=== PATIENT | female | born 1985 | race Caucasian/White ===

== ENCOUNTER → 2017-01-21 | Outpatient (CLI) | payer OTHER ==
--- NOTE | 2017-01-22 07:04 | US ---
EXAMINATION TYPE: US OB anatomy transabd third trimester DATE OF EXAM: 01/21/2017 4:10 PM COMPARISON: US in PACS January 23, 2016 HISTORY: LGA TECHNIQUE: Transabdominal (TA) EXAM MEASUREMENTS: GESTATIONAL AGE / DATING Physician Established: (37 weeks/6 days) EDC: 02/05/2017 Dates by LMP: (37 weeks/6 days) EDC: 02/05/2017 Dates by First Scan: (38 weeks/1 days) EDC: 02/02/2017 Dates by Current Scan for: (38 weeks/4 days) EDC: 01/31/2017 SURVEY IUP: Single PLACENTA: Fundal PREVIA: No previa AMARI: 11.6 cm Normal CERVICAL LENGTH (transabdominal: norm > 3.0cm): 3.1 cm BIOMETRY PRESENTATION: Vertex BPD: 9.6 cm 39 weeks / 2 days HC: 34.2 cm 39 weeks / 3 days AC: 35.2 cm 39 weeks / 1 days FL: 7.1 cm 36 weeks / 3 days ESTIMATED WEIGHT IN GRAMS: 3530 grams ESTIMATED WEIGHT IN LBS/OZS: 7 lbs. 13 oz. WEIGHT PERCENTAGE BASED ON ESTABLISHED DATE: 74 % HC/AC: 0.97 Normal FL/AC: 20 Normal HEART RATE: 163 bpm RHYTHM: Normal ANATOMY SEEN (within normal limits): * Lateral Vent (< 1 cm) 0.7 cm Choroid Plexus (bilateral) Midline Falx Cavus Septi Pellucidi Four Chamber Heart Outflow tracts: LVOT/ Stomach Situs Diaphragm Kidneys (bilateral) Bladder Three Vessel Cord Longitudinal Spine Transverse Spine ANATOMY NOT SEEN: Cisterna Magna (< 1.1 cm) cm * Nuchal Fold (< 0.6 cm) cm * Cerebellum (varies with age) cm RVOT Nose / Lips Cord Insert Arms (bilateral) Legs (bilateral) TECHNOLOGIST IMPRESSION: Single, viable IUP/ Growth parameters wnl/ Male genitalia visible with bila teral hydroceles visualized Single live intrauterine gestation is redemonstrated. Normal cephalad presentation to fetus is curren tly identified. Amniotic fluid index is within normal limits. There is no evidence for placenta previ a. biometry measurements are within normal limits. Detailed anatomical survey shows no suspicio us abnormality during real-time scanning but due to advanced gestational age and positioning, several structures noted above are suboptimally evaluated. There is moderate to large bilateral scrotal flui d collection or hydroceles identified. IMPRESSION: As above, scrotal fluid collection or hydroceles noted
== END | disposition home or self-care (01) ==
LOC: RADUSWWP 15:44
PROVIDERS: ATTEND Obstetrics & Gynecology
DX: O36.63X0 Maternal care for excessive fetal growth, third trimester, not applicable or unspecified (principal); Z3A.39 39 weeks gestation of pregnancy
CPT/HCPCS: 76811

== ENCOUNTER 2017-01-29 16:15 | Inpatient (IN) | payer OTHER ==
[2017-01-29] MEDS ORDERED: ceFAZolin 2 GM in SODIUM CHLORIDE 0.9% 100 ML IVPB ONE (16:56)
[2017-01-29] MEDS ORDERED: CITRIC ACID-SODIUM CITRATE 15 ML CUP PO ONE (16:56)
--- NOTE | 2017-01-29 17:01 | P.HPOB ---
History of Present Illness H&P Date: 01/29/17 Chief Complaint: Interim at term: Gestational hypertension versus preeclamptic Morena is a 31-year-old at 39 weeks gestation arrives to the office today for her normal obstetrical visit. Her blood pressures in the office was 152/94 and she sexually has had several other elevated blood pressures all in the low elevated range in the 150s over 80s to 90s. She is therefore planned for delivery due to above. Her cervix however is closed thick and long. In discussion with the patient we gave the option of Cervidil ripening with an attempt at induction tomorrow versus primary section tonight. Due to her concerns over a length of time for delivery and risk with blood pressure elevation she is opted for a section. This was discussed with both she and her and will be planned out for this evening. Risks/benefits/ alternatives were reviewed with the patient in detail and all questions were answered for her prior to proceeding to the operating room these did include but were not limited to damage to bladder, bowel, ureters, bleeding, infection. Is also noted the baby has either varicocele or some type of fluid collection within the testes bilaterally. This will need to be discussed with the mutual fund manager so taken thoroughly evaluate this tomorrow. Physical exam vital signs ar noted to have elevation in blood pressure. She was however afebrile. Heart regular, lungs clear, extremities without pain, there is 1+ pitting edema bilaterally, she is noted to have 2+ deep tendon reflexes. . Gravid uterus is noted. heart tones are in the 150s and are reactive. Assessment intrauterine at term. Gestational hypertension versus preeclampsia. Labs have been ordered and are pending. Should any lab abnormalities be present will plan to initiate make sulfate as seizure prophylaxis. Medications and Allergies Allergies Allergy/AdvReac Type Severity Reaction Status Date / Time No Known Allergies Allergy Verified 01/29/17 16:50 Exam Osteopathic Statement: *. No significant issues noted on an osteopathic structural exam other than those noted in the History and Physical/Consult. - Vital Signs Vital signs: Intake and Output 01/29/17 01/29/17 01/29/17 06:59 14:59 22:59 Other: Weight 117.027 kg Patient Weight 01/30/17 06:59 Weight 117.027 kg - OBG Physical Exam Breast: both: normal (no masses) Abdomen: bowel sounds normal, no diffuse tenderness, no bruit present, no guarding noted, no hepatomegaly, no splenomegaly, no mass Vulva: both: normal Vagina: normal moisture, no discharge Cervix: no lesion, no discharge Uterus: normal size, normal contour Adnexa: both: normal Anus/Rectum: normal perianal skin, no rectal mass, no hemorrhoids, heme negative
[2017-01-29] MEDS: LACTATED RINGERS 1,000 ML IV SCH (17:11)
[2017-01-29 17:14] LABS: Appearance,Urine Cloudy (Clear); Bacteria,Urine Few /hpf; Bilirubin,Urine Negative (Negative); Glucose,Urine (UA) Negative (Negative); Ketones,Urine Negative (Negative); Leukocyte Esterase,Urine Negative (Negative); Mucus,Urine Rare /hpf; Nitrite,Urine Negative (Negative); PH, Urine 6.5 (5.0-8.0); Particle Count 8814; Protein,Urine 1+ (Negative); RBC,Urine 1 /hpf (0-5); Specific Gravity,Urine 1.021 (1.001-1.035); Squamous Epithelial Cell,Urine 5 /hpf (0-4); UA Billing (MACRO vs. MICRO) MICRO; Urobilinogen,Urine <2.0 mg/dL (<2.0); WBC,Urine 5 /hpf (0-5)
[2017-01-29 17:25] LABS: ALT 24 U/L (9-52); AST 14 U/L (14-36); Blood Urea Nitrogen 11 mg/dL (7-17); LDH 351 U/L (313-618); Non-African American GFR(MDRD) >60 (>60 ml/min/1.73 sqM); Uric Acid 6.3 mg/dL (3.7-7.4)
[2017-01-29 17:53] VITALS: BMI 40.4
[2017-01-29 19:21] LABS: Basophils % (A) 0 %; CH 29.8; CHCM 33.5; Eosinophils # (A) 0.1 k/uL (0-0.7); Eosinophils % (A) 1 %; HCT 36.1 % (34.0-46.0); HDW 2.73; Luc # (Auto) 0.31; Luc % (Auto) 3; Lymphocytes # (A) 1.5 k/uL (1.0-4.8); Lymphocytes % (A) 15 %; MCH 29.7 pg (25.0-35.0); MCHC 33.1 g/dL (31.0-37.0); MCV 89.6 fL (80.0-100.0); Mean Platelet Volume 7.9; Monocytes # (A) 0.4 k/uL (0-1.0); Monocytes % (A) 4 %; Neutrophils # (A) 7.5 k/uL (1.3-7.7); Neutrophils % (A) 76 %; RBC 4.03 m/uL (3.80-5.40); WBC 9.9 k/uL (3.8-10.6)
[2017-01-29] MEDS ORDERED: KETOROLAC 30 MG/ML 1 ML VIAL ONE (20:24)
[2017-01-29] MEDS ORDERED: OXYTOCIN 10 UNIT/ML 1 ML VIAL IM ONE (20:24)
[2017-01-29] MEDS ORDERED: LACTATED RINGERS 1,000 ML BAG IV ONE (20:24)
[2017-01-29] MEDS ORDERED: ePHEDrine 50 MG/ML 1 ML AMP ONE (20:24)
[2017-01-29] MEDS ORDERED: NALBUPHINE 10 MG/ML AMPUL ONE (20:24)
[2017-01-29] MEDS ORDERED: ONDANSETRON 4 MG/2 ML VIAL ONE (20:24)
[2017-01-29] MEDS ORDERED: MORPHINE SULFATE (PF) 0.3 MG/0.3 ML SYR ONE (20:24)
[2017-01-29] MEDS ORDERED: NALOXONE 0.4 MG/ML 1 ML VIAL IV PRN (20:56)
[2017-01-29] MEDS ORDERED: MORPHINE SULFATE 4 MG/ML SYRINGE IVP PRN (20:56)
[2017-01-29] MEDS ORDERED: ONDANSETRON 4 MG/2 ML VIAL IVP PRN (20:56)
[2017-01-29] MEDS ORDERED: NALBUPHINE 10 MG/ML AMPUL IV PRN (20:56)
[2017-01-29] MEDS ORDERED: diphenhydrAMINE 50 MG/ML 1 ML VIAL IVP PRN ×2 (20:56→21:00)
[2017-01-29] MEDS ORDERED: Acetaminophen-Codeine 300-30mg TAB PO PRN ×2 (21:00)
[2017-01-29] MEDS ORDERED: ZOLPIDEM 5 MG TAB PO PRN (21:00)
[2017-01-29] MEDS ORDERED: diphenhydrAMINE 50 MG CAP PO PRN (21:00)
[2017-01-29] MEDS ORDERED: ACETAMINOPHEN TAB 325 MG TAB PO PRN (21:00)
[2017-01-29] MEDS ORDERED: SIMETHICONE 80 MG CHEWABLE PO PRN (21:00)
[2017-01-29] MEDS ORDERED: LACTATED RINGERS 1,000 ML IV SCH (21:00)
[2017-01-29] MEDS ORDERED: diphenhydrAMINE 25 MG CAP PO PRN (21:00)
[2017-01-29] MEDS ORDERED: METOCLOPRAMIDE 5 MG/ML 2 ML VIAL IVP PRN (21:00)
--- NOTE | 2017-01-29 21:06 | P.OP ---
Date of Procedure: 01/29/17 Preoperative Diagnosis: IUP term: gest hypertension: suspect macrosomia Postoperative Diagnosis: same Procedure(s) Performed: Primary low-transverse section from Pfannenstiel Anesthesia: spinal Surgeon: Marky Morgan [place] [employer] Director #1: Анна Young Estimated Blood Loss (ml): 400 IV fluids (ml): 800 Urine output (ml): 50 Pathology: other (Placenta) Condition: stable Disposition: floor Operative Findings: Male scores of 8 and 9 at one and 5 minutes respectively weight was 8 lbs. 11 oz. Description of Procedure: Patient was taken to the operating suite where a spinal anesthetic was found to be adequate. She was prepped and draped in the normal sterile fashion placed in the dorsal supine position with leftward tilt. Initially a Pfannenstiel skin incision was made. This incision was then carried through to underlying layer of the fascia was second knife. Fascia was then nicked in midline and this opening was extended laterally with Ashraf scissors. Superior and inferior aspect of this incision were then grasped tented up and bluntly and sharply dissected off the rectus muscles. Rectus muscles were then divided the midline and blunt dissection through the peritoneum was made. This opening was then extended superiorly and inferiorly with good visualization of both bowel bladder. Bladder blade was then placed and the vesicouterine peritoneum was identified and grasped pickups. This tissue was then entered sharply with Metzenbaum scissors and the opening was extended across face of the uterus. Blunt dissection of the bladder out of the operative field was then performed. Knife was then used to incise the uterus. This opening was then created fully with hemostat clear fluid is noted and excision incision is extended bluntly. Head was then H medically delivered a cord was noted around the body was delivered through the cord. Interim posterior shoulders were delivered with gentle downward upper traction and by grasping the axilla to assist in delivery. Once baby was fully delivered mouth nares were bulb suctioned 2 times and umbilical cord was clamped cut usual fashion with nursery personnel being present at that time. Uterus then had the placenta delivered intact and Pitocin was added to the IV. Uterus was then exteriorized cleared of clots and debris and closed in 2 layers with 0 Vicryl suture. Once excellent hemostasis was obtained obtained 3-0 Vicryl was used to reapproximate the bladder flap. Blood and debris was then suctioned from the posterior cul-de-sac and uterus was reinserted into the abdomen. Peritoneal was then reapproximated with 0 Vicryl suture. Fascial layer was closed with 0 Vicryl suture. One layer of 3- 0 Vicryl was placed in deep subcuticular tissues to reapproximate the skin and close space and the skin was then closed with 3-0 Vicryl on a Alfonzo needle. Sponge, lap, needle counts were all correct 2. Patient was then taken to the recovery room in stable and satisfactory condition.
[2017-01-29] MEDS: OXYTOCIN 30 UNITS/500 ML NS 30 UNIT in SALINE 1 500ML.BAG IV SCH (21:33)
[2017-01-30] MEDS: LACTATED RINGERS 1,000 ML IV SCH ×3 (00:55→20:27)
[2017-01-30] MEDS: KETOROLAC 30 MG/ML 1 ML VIAL IVP PRN ×4 (03:24→21:56)
[2017-01-30] MEDS: ceFAZolin 2 GM in SODIUM CHLORIDE 0.9% 100 ML IVPB SCH ×2 (03:24→10:26)
[2017-01-30] MEDS: OXYTOCIN 30 UNITS/500 ML NS 30 UNIT in SALINE 1 500ML.BAG IV SCH (06:33)
--- NOTE | 2017-01-30 08:02 | P.PNOBGPC ---
Subjective - Subjective Principal diagnosis: Postop day 1 Interval history: Overall Morena is doing very well. She is ambulating, voiding and she is tolerating a diet. She voices no complaints this time. Her vital signs are stable and she is afebrile. Blood pressure appears much better after delivery. Her heart is regular, lungs are clear, extremities without pain. Abdomen soft uterus is firm and the incision is currently intact. Assessment postop day 1. Plan continue current care. Patient reports: Reports appetite normal (Postoperative day 1), Reports voiding normally, Reports pain well controlled, Reports ambulating normally [place]: doing well Objective - Vital Signs Latest vital signs: Vital Signs Temp Pulse Resp BP Pulse Ox 01/30/17 05:00 87 16 129/80 98 01/30/17 04:00 85 15 122/79 98 01/30/17 03:00 68 15 132/80 96 01/30/17 01:00 82 15 127/62 96 01/29/17 23:08 93 16 115/74 95 01/29/17 22:38 86 16 130/74 95 01/29/17 22:08 100 16 124/60 94 L 01/29/17 21:53 96 16 128/62 96 01/29/17 21:38 95 18 133/62 95 01/29/17 21:23 93 17 121/58 95 01/29/17 21:08 98.1 F 104 H 18 118/66 01/29/17 20:56 94 L Intake and Output 01/29/17 01/30/17 01/30/17 22:59 06:59 14:59 Intake Total 475 800 Output Total 250 Balance 475 550 Intake: IV 475 250 Lactated Ringers 1,000 ml 375 250 @ 125 mls/hr IV .Q8H [facility] Rx#:[id number] ceFAZolin 2 gm In Sodium 100 Chloride 0.9% 100 ml @ 100 mls/hr IVPB ONCE ONE Rx#:[id number] Oral 550 Output: Urine 250 Uretheral (Benavides) 250 Other: Voiding Method Indwelling Catheter Indwelling Catheter Weight 117.027 kg - Exam Lungs: bilateral: normal Chest: Normal S1, Normal S2 Extremities: Present: normal Abdomen: Present: normal appearance, soft. Absent: distention, tenderness Incision: Present: normal, dry, intact Uterus: Present: normal, firm - Labs Labs: Abnormal Lab Results - Last 24 Hours (Table) 01/29/17 Range/Units 16:58 Urine Appearance Cloudy H (Clear) Urine Protein 1+ H (Negative) Ur Squamous Epith Cells 5 H (0-4) /hpf Urine Bacteria Few H (None) /hpf Urine Mucus Rare H (None) /hpf
[2017-01-30 08:05] LABS: Basophils % (A) 0 %; CH 29.4; CHCM 32.8; Eosinophils # (A) 0.1 k/uL (0-0.7); Eosinophils % (A) 1 %; HCT 34.4 % (34.0-46.0); HDW 2.66; HGB 11.2 gm/dL (11.4-16.0); Luc # (Auto) 0.32; Luc % (Auto) 3; Lymphocytes # (A) 1.4 k/uL (1.0-4.8); Lymphocytes % (A) 12 %; MCH 29.4 pg (25.0-35.0); MCHC 32.6 g/dL (31.0-37.0); Mean Platelet Volume 6.9; Monocytes # (A) 0.4 k/uL (0-1.0); Monocytes % (A) 3 %; Neutrophils # (A) 9.7 k/uL (1.3-7.7); Neutrophils % (A) 82 %; RBC 3.82 m/uL (3.80-5.40); WBC 11.9 k/uL (3.8-10.6); WBC (Perox) 12.93
[2017-01-30] MEDS: SENNOSIDES-DOCUSATE SODIUM 1 EACH TAB PO SCH ×2 (10:03→19:34)
--- NOTE | 2017-01-30 10:40 | P.PN ---
Progress Note - Text Date:01/30 Time:723 Patient is status post . Patient seen this morning with VAS score of 0. c/o mild pruritus, no c/o nausea/vomiting, comfortable and doing well.
[2017-01-30] MEDS ORDERED: ONDANSETRON 4 MG/2 ML VIAL IVP PRN (21:00)
[2017-01-31] MEDS: LACTATED RINGERS 1,000 ML IV SCH (04:58)
--- NOTE | 2017-01-31 07:22 | P.PNOBGPC ---
Subjective - Subjective Patient reports: Reports appetite normal, Reports voiding normally, Reports pain well controlled, Reports ambulating normally : doing well Objective - Vital Signs Latest vital signs: Vital Signs Temp Pulse Resp BP Pulse Ox 01/31/17 00:00 98.3 F 89 16 110/61 97 01/30/17 22:00 86 16 120/81 96 01/30/17 20:00 98.2 F 83 16 113/63 97 01/30/17 18:00 98.3 F 94 16 116/67 97 01/30/17 16:00 98.4 F 90 14 115/64 98 01/30/17 14:00 97.8 F 94 16 116/78 98 01/30/17 12:00 98 F 84 14 104/63 98 01/30/17 08:00 97.7 F 88 16 112/69 98 - Exam Lungs: bilateral: normal Chest: Normal S1, Normal S2 Extremities: Present: normal Abdomen: Present: normal appearance, soft. Absent: distention, tenderness Incision: Present: normal, dry, intact Uterus: Present: normal, firm - Labs Labs: Abnormal Lab Results - Last 24 Hours (Table) 01/30/17 Range/Units 07:34 WBC 11.9 H (3.8-10.6) k/uL Hgb 11.2 L (11.4-16.0) gm/dL Neutrophils # 9.7 H (1.3-7.7) k/uL Assessment and Plan (1) delivery delivered Narrative/Plan: This is postoperative day #2. Patient is resting without new complaints. Vital signs are stable and she is afebrile. Blood pressures look good. Uterus is firm nontender and her incision is intact and dry. Patient is tolerating regular diet, urinating, ambulating without difficulty. My impression this is a normal postoperative course. Her hypertension appears to have resolved. Plan is to continue routine postoperative care. Patient desires to go home tomorrow. Current Visit: Yes Status: Acute Code(s): O82 - ENCOUNTER FOR DELIVERY WITHOUT INDICATION SNOMED Code(s): 443544799 (2) Gestational hypertension Current Visit: Yes Status: Acute Code(s): O13.9 - GESTATIONAL HTN W/O SIGNIFICANT PROTEINURIA, UNSP TRIMESTER SNOMED Code(s): 08237864
[2017-01-31] MEDS: KETOROLAC 30 MG/ML 1 ML VIAL IVP PRN (08:01)
[2017-01-31] MEDS: SENNOSIDES-DOCUSATE SODIUM 1 EACH TAB PO SCH ×2 (08:28→20:00)
[2017-01-31] MEDS: IBUPROFEN 600 MG TAB PO PRN ×2 (13:57→20:00)
[2017-02-01 00:07] VITALS: RESP 18
[2017-02-01] MEDS: IBUPROFEN 600 MG TAB PO PRN (03:54)
--- NOTE | 2017-02-01 07:12 | P.PNOBGPC ---
Subjective - Subjective Patient reports: Reports appetite normal, Reports voiding normally, Reports pain well controlled, Reports ambulating normally : doing well Objective - Vital Signs Latest vital signs: Vital Signs Temp Pulse Resp BP Pulse Ox 02/01/17 00:05 98.5 F 88 18 134/75 96 01/31/17 15:54 97.4 F L 87 16 138/78 01/31/17 08:41 98.7 F 96 18 154/78 - Exam Lungs: bilateral: normal Chest: Normal S1, Normal S2 Extremities: Present: normal Abdomen: Present: normal appearance, soft. Absent: distention, tenderness Incision: Present: normal, dry, intact Uterus: Present: normal, firm Assessment and Plan (1) delivery delivered Narrative/Plan: Postoperative day #3. Patient is resting without complaints. Vital signs are stable and she is only had 1 elevated blood pressure otherwise none requiring any treatment. Incision is intact and dry and healing well. Patient does wish to go home today. She's tolerating regular diet, urinating, ambulating without difficulty. My impression is that this patient is doing well and is stable for discharge home to follow up with Dr. Lobo in 1 week. Current Visit: Yes Status: Acute Code(s): O82 - ENCOUNTER FOR DELIVERY WITHOUT INDICATION SNOMED Code(s): 024915049 (2) Gestational hypertension Current Visit: Yes Status: Acute Code(s): O13.9 - GESTATIONAL HTN W/O SIGNIFICANT PROTEINURIA, UNSP TRIMESTER SNOMED Code(s): 03648242
--- NOTE | 2017-02-01 07:15 | P.DS ---
Providers Date of admission: 01/29/17 16:15 Expected date of discharge: 02/01/17 Attending physician: Marky Morgan Primary care physician: Edouard Alarcon - Discharge Diagnosis(es) (1) delivery delivered Current Visit: Yes Status: Acute (2) Gestational hypertension Current Visit: Yes Status: Acute Hospital Course: Please see dictated H&P per Dr. Morgan on this patient's admission. Brief summary this is a pleasant 31-year-old 3 para 0 female 39 weeks gestation admitted with gestational hypertension unfavorable cervix. She underwent a primary low transverse section for viable male infant. Please see dictated operative note. Postoperative patient's blood pressures do come down well and on postoperative 3 she's felt be stable for discharge home. Procedures: Primary low transverse section. Patient Condition at Discharge: Good Plan - Discharge Summary New Discharge Prescriptions: Acetaminophen-Codeine 300-30mg [Tylenol #3] 1 tab PO Q4H PRN #30 tablet PRN Reason: Pain Ibuprofen [Motrin] 600 mg PO Q6HR PRN #30 tab PRN Reason: Pain Discharge Medication List Pnv with Ca,No.72/Iron/FA [ Plus Tablet] 1 each PO 01/29/17 [History] Acetaminophen-Codeine 300-30mg [Tylenol #3] 1 tab PO Q4H PRN #30 tablet [Rx] Ibuprofen [Motrin] 600 mg PO Q6HR PRN #30 tab 01/30/17 [Rx] Follow up Appointment(s)/Referral(s): Marky Morgan DO [Doctor of Osteopathic Medicine] - 1 Week (Please call the office on Thursday see Dr. Morgan in 1 week.) Patient Instructions/Handouts: (DC) Activity/Diet/Wound Care/Special Instructions: No heavy lifting, limit stairs and driving and pelvic rest. If any high temperatures, heavy bleeding, or severe pain call my office
[2017-02-01 09:18] VITALS: BP 147/75; PULSE 93; TEMP 97.8
[2017-02-01] MEDS: SENNOSIDES-DOCUSATE SODIUM 1 EACH TAB PO SCH (09:18)
== END 2017-02-01 14:30 | disposition home or self-care (01) | DRG 766 ==
LOC: 4FBP 16:15
PROVIDERS: ADMIT Obstetrics & Gynecology; ATTEND Obstetrics & Gynecology
PROC: 10D00Z1 Extraction of Products of Conception, Low, Open Approach (ICD-10-PCS; principal; 2017-01-29 20:23)
DX: O13.4 Gestational [pregnancy-induced] hypertension without significant proteinuria, complicating childbirth (principal); Z37.0 Single live birth; Z3A.39 39 weeks gestation of pregnancy; Z79.899 Other long term (current) drug therapy
CPT/HCPCS: 81001; 82565; 83615; 84450; 84460; 84520; 84550; 85025; 86850; 86900; 86901; 88307

== ENCOUNTER → 2018-06-17 | Outpatient (CLI) | payer OTHER | END | disposition home or self-care (01) | LOC: LABWHC1 11:31 | PROVIDERS: ATTEND Obstetrics & Gynecology | DX: O03.9 Complete or unspecified spontaneous abortion without complication (principal) | CPT/HCPCS: 36415; 84702 ==

== ENCOUNTER → 2018-06-19 | Outpatient (CLI) | payer OTHER | END | disposition home or self-care (01) | LOC: LABWHC1 08:36 | PROVIDERS: ATTEND Obstetrics & Gynecology | DX: O03.9 Complete or unspecified spontaneous abortion without complication (principal) | CPT/HCPCS: 36415; 84702 ==

== ENCOUNTER → 2018-11-29 | Outpatient (CLI) | payer OTHER | LOC: LABWHC1 13:21 | PROVIDERS: ATTEND Obstetrics & Gynecology | DX: O03.9 Complete or unspecified spontaneous abortion without complication (principal) | CPT/HCPCS: 36415; 84702 ==

== ENCOUNTER → 2018-12-06 | Outpatient (CLI) | payer OTHER | END | disposition home or self-care (01) | LOC: LABWHC1 12:09 | PROVIDERS: ATTEND Obstetrics & Gynecology | DX: O03.9 Complete or unspecified spontaneous abortion without complication (principal) | CPT/HCPCS: 36415; 84702 ==

== ENCOUNTER → 2020-04-20 | Outpatient (CLI) | payer OTHER | END | disposition home or self-care (01) | LOC: LABWHC1 08:55 | PROVIDERS: ATTEND Obstetrics & Gynecology | DX: Z11.59 Encounter for screening for other viral diseases (principal) ==

== ENCOUNTER 2020-04-24 10:09 | Inpatient (IN) | payer OTHER ==
[2020-04-20 15:17] VITALS: BMI 39.1
--- NOTE | 2020-04-21 12:36 | P.HPOB ---
History of Present Illness H&P Date: 04/21/20 Chief Complaint: Intrauterine at term: Prior section Morena is a 34-year-old G3 5 P1 at 39 weeks gestation arise for repeat C- section. Risks/benefits/alternatives were reviewed with the patient in detail and all questions were answered for her prior to proceeding to the operative. Initially she had considered a trial of labor after but ultimately has decided on repeat . Her course was remarkable for advanced maternal age for which she declined maternal medicine evaluation. She did pass her Glucola screen and was followed with NSTs and BPP is late in due to advanced maternal age. All questions were answered for her prior to proceeding to the operative room. Her pertinent labs did include A+ blood type, Rh antibody was negative, rubella is immune, hepatitis B surface antigen/RPR and GBS were all negative. She did pass her Glucola screen. Past Medical History Past Medical History: No Reported History History of Any Multi-Drug Resistant Organisms: None Reported Past Surgical History: Section Past Anesthesia/Blood Transfusion Reactions: No Reported Reaction Smoking Status: Former smoker - Past Family History Mother Family Medical History: Hypertension, Skin Disorder Medications and Allergies Home Medications Medication Instructions Recorded Confirmed Type Pnv,Calcium 72/Iron/Folic Acid 1 each PO DAILY 01/29/17 04/20/20 History [ Plus Tablet] Allergies Allergy/AdvReac Type Severity Reaction Status Date / Time No Known Allergies Allergy Verified 04/20/20 15:08 Exam Osteopathic Statement: *. No significant issues noted on an osteopathic structural exam other than those noted in the History and Physical/Consult. Intake and Output 04/20/20 04/21/20 04/21/20 22:59 06:59 14:59 Other: Weight 113.398 kg - OBG Physical Exam Breast: both: normal (no masses) Abdomen: bowel sounds normal, no diffuse tenderness, no bruit present, no guarding noted, no hepatomegaly, no splenomegaly, no mass Vulva: both: normal Vagina: normal moisture, no discharge Cervix: no lesion, no discharge Uterus: normal size, normal contour Adnexa: both: normal Anus/Rectum: normal perianal skin, no rectal mass, no hemorrhoids, heme negative
[2020-04-24] MEDS ORDERED: CITRIC ACID-SODIUM CITRATE 15 ML CUP PO ONE (10:20)
[2020-04-24] MEDS: LACTATED RINGERS 1,000 ML IV SCH ×4 (10:31→22:27)
[2020-04-24 11:22] LABS: Basophils % (A) 0 %; Eosinophils # (A) 0.1 k/uL (0-0.7); Eosinophils % (A) 1 %; HGB 12.4 gm/dL (11.4-16.0); Lymphocytes # (A) 1.3 k/uL (1.0-4.8); Lymphocytes % (A) 16 %; MCH 28.2 pg (25.0-35.0); MCHC 31.9 g/dL (31.0-37.0); MCV 88.4 fL (80.0-100.0); Mean Platelet Volume 7.8; Monocytes # (A) 0.3 k/uL (0-1.0); Monocytes % (A) 4 %; Neutrophils # (A) 6.5 k/uL (1.3-7.7); Neutrophils % (A) 78 %; Platelet Count 236 k/uL (150-450); RBC 4.42 m/uL (3.80-5.40); WBC 8.4 k/uL (3.8-10.6)
[2020-04-24] MEDS ORDERED: ePHEDrine SULFATE/0.9% NACL/PF 50 MG/5 ML SYRINGE IV ONE (12:03)
[2020-04-24] MEDS ORDERED: KETOROLAC 30 MG/ML 1 ML VIAL ONE (12:03)
[2020-04-24] MEDS ORDERED: MORPHINE SULFATE (PF) 0.3 MG/0.3 ML SYR ONE (12:03)
[2020-04-24] MEDS ORDERED: OXYTOCIN 10 UNIT/ML 1 ML VIAL ONE (12:03)
[2020-04-24] MEDS ORDERED: NALBUPHINE 10 MG/ML (1 ML AMP) ONE (12:03)
[2020-04-24] MEDS ORDERED: ONDANSETRON 4 MG/2 ML VIAL ONE (12:03)
[2020-04-24] MEDS ORDERED: HYDROcodone/APAP 7.5-325MG 1 EACH TAB PO PRN (12:39)
[2020-04-24] MEDS ORDERED: ONDANSETRON 4 MG/2 ML VIAL IVP PRN (12:39)
[2020-04-24] MEDS ORDERED: diphenhydrAMINE 50 MG CAP PO PRN (12:39)
[2020-04-24] MEDS ORDERED: diphenhydrAMINE 50 MG/ML 1 ML VIAL IVP PRN ×2 (12:39)
[2020-04-24] MEDS ORDERED: ZOLPIDEM 5 MG TAB PO PRN (12:39)
[2020-04-24] MEDS ORDERED: KETOROLAC 30 MG/ML 1 ML VIAL IVP PRN (12:39)
[2020-04-24] MEDS ORDERED: NALOXONE 0.4 MG/ML 1 ML VIAL IV PRN (12:39)
[2020-04-24] MEDS ORDERED: ACETAMINOPHEN TAB 325 MG TAB PO PRN (12:39)
[2020-04-24] MEDS ORDERED: diphenhydrAMINE 25 MG CAP PO PRN (12:39)
--- NOTE | 2020-04-24 12:43 | P.OP ---
Date of Procedure: 04/24/20 Preoperative Diagnosis: Intrauterine at term: Prior section Postoperative Diagnosis: Same Procedure(s) Performed: Repeat low transverse section Anesthesia: spinal Surgeon: Marky Morgan Last Putter Away #1: Andi Haley Estimated Blood Loss (ml): 350 IV fluids (ml): 900 Urine output (ml): 100 Pathology: none sent Condition: stable Disposition: floor Operative Findings: Male 's of 9 and 9 at one and 5 minutes as well as a weight of 7 lbs. 14 oz. Description of Procedure: Morena was taken to the operating suite where a spinal anesthetic was found be adequate. She was prepped and draped in the normal sterile fashion and placed in dorsal supine position with leftward tilt. Initially a Pfannenstiel skin incision was made and this incision was then carried through to the underlying layer of the fascia with the second knife. Fascia was then nicked in the midline and this opening was extended laterally with Ashraf scissors. Superior an d inferior aspect of this incision were then bluntly and sharply dissected off the rectus muscles. Rectus muscles were then divided the midline and sharp dissection the peritoneum was performed. This opening was then extended superiorly and inferiorly with good visualization of both bowel bladder. Bladder blade was then placed and bladder flap identified. It was adherent high on the right side so cautious dissection to move it out of the operative field was made. Once it was completely out of the operative field knife was then used to incise uterus and this opening was fully developed a hemostat and then extended bluntly. Clear fluid is noted. Head was then H medically delivered nuchal cord 1 easily reduced. Anterior and posterior shoulders were then delivered with gentle downward traction followed by the remainder the baby. Umbilical cord was then clamped cut usual fashion an nursery personnel was present to assume care. Placenta was then delivered intact. Uterus was then exteriorized cleared of clots and debris and closed in 2 layers with 0 Vicryl suture. Once excellent hemostasis was obtained blood and debris was suctioned from the posterior cul-de-sac and uterus was reinserted into the abdomen. Peritoneal layer was then reapproximated with 3-0 Vicryl. Fascial layer was closed with 0 Vicryl suture. One layer of 3-0 Vicryl was placed in deep subcuticular tissues to reapproximate the skin and close the space. Skin was then closed with 3-0 Vicryl subcuticularly. Sponge, lap, needle counts were all correct 2. Patient was then taken to the recovery room in stable and satisfactory condition.
[2020-04-24] MEDS: METOCLOPRAMIDE 5 MG/ML 2 ML VIAL IVP PRN ×2 (14:42→22:45)
[2020-04-24] MEDS: SENNOSIDES-DOCUSATE SODIUM 1 EACH TAB PO SCH (22:26)
[2020-04-25 06:04] LABS: Basophils % (A) 0 %; Eosinophils % (A) 0 %; HCT 35.5 % (34.0-46.0); HGB 11.2 gm/dL (11.4-16.0); Lymphocytes # (A) 1.4 k/uL (1.0-4.8); Lymphocytes % (A) 12 %; MCH 28.4 pg (25.0-35.0); MCHC 31.7 g/dL (31.0-37.0); MCV 89.7 fL (80.0-100.0); Mean Platelet Volume 7.9; Monocytes # (A) 0.5 k/uL (0-1.0); Monocytes % (A) 4 %; Neutrophils # (A) 10.1 k/uL (1.3-7.7); Neutrophils % (A) 82 %; Platelet Count 214 k/uL (150-450); RBC 3.96 m/uL (3.80-5.40); RDW 14.3 % (11.5-15.5); WBC 12.2 k/uL (3.8-10.6)
--- NOTE | 2020-04-25 07:38 | P.PN ---
Progress Note - Text Progress Note Date: 04/25/20 34 yo female s/p . POD#1. Patient received intrathecal Duramorph. Breanna ent was seen today, sitting up in bed no complaints, pain VAS score 0/10, no headache, no itching, no nausea and vomiting. Assessment and plan: Doing well in general no complications from anesthesia
[2020-04-25] MEDS: SENNOSIDES-DOCUSATE SODIUM 1 EACH TAB PO SCH ×2 (08:19→20:05)
[2020-04-25] MEDS: IBUPROFEN 600 MG TAB PO PRN ×2 (08:19→20:05)
--- NOTE | 2020-04-25 08:45 | P.PNOBGPC ---
Subjective - Subjective Principal diagnosis: Postop day 1 Interval history: Morena is doing very well. She is involuting, voiding and tolerating her diet. She voices no complaints. Continue current care. Patient reports: Reports appetite normal, Reports voiding normally, Reports pain well controlled, Reports ambulating normally [place]: doing well Objective - Vital Signs Latest vital signs: Vital Signs Temp Pulse Resp BP Pulse Ox 04/25/20 04:00 98.0 F 75 16 122/62 99 04/25/20 00:00 97.9 F 71 18 129/76 95 04/24/20 19:48 97.9 F 71 18 129/76 98 04/24/20 16:00 98.1 F 68 15 134/67 04/24/20 14:47 75 15 107/55 98 04/24/20 14:17 74 15 105/58 98 04/24/20 13:47 88 15 114/58 98 04/24/20 13:32 69 15 116/58 98 04/24/20 13:17 72 15 116/61 98 04/24/20 13:02 78 15 111/58 96 04/24/20 12:47 97.4 F L 83 15 108/61 98 04/24/20 10:22 96.6 F L 99 15 123/72 99 Intake and Output 04/24/20 04/25/20 04/25/20 22:59 06:59 14:59 Output Total 100 Balance -100 Output: Urine 100 Other: # Voids 1 - Exam Lungs: bilateral: normal Chest: Normal S1, Normal S2 Extremities: Present: normal Abdomen: Present: normal appearance, soft. Absent: distention, tenderness Incision: Present: normal, dry, intact Uterus: Present: normal, firm - Labs Labs: Abnormal Lab Results - Last 24 Hours (Table) 04/25/20 Range/Units 05:37 WBC 12.2 H (3.8-10.6) k/uL Hgb 11.2 L (11.4-16.0) gm/dL Neutrophils # 10.1 H (1.3-7.7) k/uL
[2020-04-26] MEDS ORDERED: HYDROcodone/APAP 7.5-325MG 1 EACH TAB ONE (00:20)
[2020-04-26 05:20] VITALS: TEMP 98.6
[2020-04-26] MEDS: IBUPROFEN 600 MG TAB PO PRN (06:25)
[2020-04-26] MEDS: SENNOSIDES-DOCUSATE SODIUM 1 EACH TAB PO SCH (08:39)
--- NOTE | 2020-04-26 09:24 | P.DS ---
Providers Date of admission: 04/24/20 10:09 Expected date of discharge: 04/26/20 Attending physician: Marky Morgan Primary care physician: Stated None Hospital Course: Morena is doing very well postop day 2. She is involuting, voiding and tolerating her diet. She voices no complaints. Her vital signs are stable and afebrile. Heart regular, lungs clear, extremities without pain. Abdomen soft uterus is firm and her bowel sounds are present. She has passed flatus and had a bowel movement. Her incision is otherwise clean dry and intact. Prescription for Morrice and Motrin reported to her pharmacy as is a breast pump prescription. Discharge instructions are thoroughly reviewed as is care for her incision. All questions are answered for her and she is stable for discharge this time. Patient Condition at Discharge: Good Plan - Discharge Summary Discharge Rx Participant: Yes New Discharge Prescriptions: New Ibuprofen [Motrin] 600 mg PO Q6HR PRN #30 tab PRN Reason: Pain HYDROcodone/APAP 5-325MG [Morrice 5-325] 1 tab PO Q4HR PRN #30 tab PRN Reason: Pain No Action Pnv,Calcium 72/Iron/Folic Acid [ Plus Tablet] 1 each PO DAILY Discharge Medication List Pnv,Calcium 72/Iron/Folic Acid [ Plus Tablet] 1 each PO DAILY 01/29/17 [History] HYDROcodone/APAP 5-325MG [Morrice 5-325] 1 tab PO Q4HR PRN #30 tab 04/26/20 [Rx] Ibuprofen [Motrin] 600 mg PO Q6HR PRN #30 tab 04/26/20 [Rx] Follow up Appointment(s)/Referral(s): Marky Morgan DO [Doctor of Osteopathic Medicine] - 1 Week Activity/Diet/Wound Care/Special Instructions: No heavy lifting, limit stairs and driving, and pelvic rest. If any high temp eratures, heavy bleeding, or severe pain call my office Discharge Disposition: HOME SELF-CARE
[2020-04-26 09:26] VITALS: BP 129/84; PULSE 82; RESP 18
== END 2020-04-26 13:30 | disposition home or self-care (01) | DRG 788 ==
LOC: 4FBP 10:09
PROVIDERS: ADMIT Obstetrics & Gynecology; ATTEND Obstetrics & Gynecology
PROC: 10D00Z1 Extraction of Products of Conception, Low, Open Approach (ICD-10-PCS; principal; 2020-04-24 12:14)
DX: O34.211 Maternal care for low transverse scar from previous cesarean delivery (principal); Z37.0 Single live birth; Z3A.39 39 weeks gestation of pregnancy; Z82.49 Family history of ischemic heart disease and other diseases of the circulatory system; Z87.891 Personal history of nicotine dependence
CPT/HCPCS: 85025; 86850; 86900; 86901

== ENCOUNTER 2021-09-03 11:29 | Outpatient (CLI) | payer OTHER ==
--- NOTE | 2021-09-03 12:43 | US ---
EXAMINATION TYPE: US OB BPP wo non-stress DATE OF EXAM: 09/03/2021 COMPARISON: NONE CLINICAL HISTORY: 36-year-old female Variable decels in office at 32 weeks.. EXAM PERFORMED: Transabdominal (TA) FINDINGS: BPP PARAMETERS: HEART RATE: 149 bpm RHYTHM: Normal AMARI: 12.1cm DIAPHRAGM IMAGED: yes BPP SCORIN. Breathin (1 episode of breathing of 30 second duration in 30 minutes of scanning time) 2. Movement: 2 (at least 3 discrete body movements in 30 minutes) 3. Tone: 2 (1 episode of active flexion/extension of limb) 4. AMARI: 2 (AMARI index > 5cm) IMPRESSION: TOTAL SCORE: 8 / 8
[2021-09-03 14:23] VITALS: BP 138/72; PULSE 96; RESP 16; TEMP 97.6
== END 2021-09-03 13:29 | disposition home or self-care (01) ==
LOC: FBPOP 11:29
PROVIDERS: ATTEND Obstetrics & Gynecology
DX: O36.8330 Maternal care for abnormalities of the fetal heart rate or rhythm, third trimester, not applicable or unspecified (principal); Z3A.32 32 weeks gestation of pregnancy
CPT/HCPCS: 76819

== ENCOUNTER 2021-10-11 11:45 | Outpatient (CLI) | payer OTHER ==
[2021-10-11 12:35] VITALS: BP 130/79; PULSE 98; RESP 17; TEMP 96
--- NOTE | 2021-10-13 08:03 | P.MSEPDOC ---
Presenting Problems - Arrival Data Date of Arrival on Unit: 10/11/21 Time of Arrival on Unit: 11:45 Mode of Transport: Ambulatory - Complaint OB-Reason for Admission/Chief Complaint: NST Comment: Pt arrived for bi-weekly NST Medical History - Information : 6 Para: 2 Term: 2 : 0 Abortions: Spontaneous or Elective: 0 Number of Living Children: 2 - Gestational Age Gestational Age by JOSE (wks/days): 37 Weeks and 4 Days - History Complications: Prior Review of Systems - Review of Systems Constitutional: No problems Breast: No problems ENT: No problems Cardiovascular: No problems Respiratory: No problems Gastrointestinal: No problems Genitourinary: No problems Musculoskeletal: No problems Neurological: No problems Skin: No problems Vital Signs - Temperature Temperature: 96.0 F Temperature Source: Temporal Artery Scan - Pulse Pulse Oximetery Pulse Rate: 98 Pulse Assessment Method: Pulse Oximetry - Respirations Respiratory Rate: 17 Oxygen Delivery Method: Room Air O2 Sat by Pulse Oximetry: 98 - Blood Pressure Right Arm Blood Pressure: 130/79 Blood Pressure Mean: 96 Blood Pressure Source: Automatic Cuff Medical Screen Scoring - Assessment - Baby A Baseline FHR: 160 Heart Rate - NICHD Category: Category I (Normal) NST: Reactive Physician Notification - Physician Notified Physician Notified Date: 10/11/21 Physician Notified Time: 12:22 Physician: Andi Haley Order Received: Yes - Notification Comment Comment: Spoke with Dr. Haley regarding patient's reactive NST. Orders to discharge. home. Maternal Triage Index - Maternal Triage Index Presenting for scheduled procedure w/no complaint: Yes - Scheduled/Requesting Priority 5 Scheduled/Requesting Priority 5: Yes Criteria Met for Priority 5: Bi-weekly NST Disposition - Disposition OB Disposition: Discharge to home Discharge Date: 10/11/21 Discharge Time: 12:26 I agree with the RN Medical Screening Exam: Yes Case reviewed; plan agreed upon as documented in EMR&OBIX.: Yes Diagnosis: RELATED CONDITIONS, UNSPECIFIED, THIRD TRIMESTER (Patient presents to labor and delivery for a nonstress test as instructed by her primary pharmacy innovation assistant. Unfortunately there is no documentation as to the indication for the nonstress test in the patient's chart. Regardless, nonstress testing is normal and there is no evidence of maternal compromise. Patient is discharged home follow up with the primary pharmacy innovation assistant as instructed.)
== END 2021-10-11 12:26 | disposition home or self-care (01) ==
LOC: FBPOP 11:45
PROVIDERS: ATTEND Obstetrics & Gynecology
DX: O26.93 Pregnancy related conditions, unspecified, third trimester (principal); Z3A.37 37 weeks gestation of pregnancy
CPT/HCPCS: 59025; 99213

== ENCOUNTER 2021-10-21 10:06 | Inpatient (IN) | payer OTHER ==
[2021-10-14 15:28] VITALS: BMI 38.7
[~2021-10-21 10:06] MED LIST: HYDROmorphone 0.5 MG/0.5 ML SYRINGE IVP PRN; NALOXONE 0.4 MG/ML 1 ML VIAL IV PRN
[2021-10-21] MEDS ORDERED: CITRIC ACID-SODIUM CITRATE 15 ML CUP PO ONE (10:20)
[2021-10-21] MEDS: LACTATED RINGERS 1,000 ML IV SCH ×3 (10:52→21:00)
[2021-10-21 11:16] LABS: Basophils % (A) 0 %; Eosinophils # (A) 0.1 k/uL (0-0.7); Eosinophils % (A) 1 %; HCT 35.2 % (34.0-46.0); HGB 11.9 gm/dL (11.4-16.0); Lymphocytes # (A) 1.1 k/uL (1.0-4.8); Lymphocytes % (A) 17 %; MCH 28.2 pg (25.0-35.0); MCHC 33.7 g/dL (31.0-37.0); MCV 83.6 fL (80.0-100.0); Mean Platelet Volume 7.9; Monocytes # (A) 0.3 k/uL (0-1.0); Monocytes % (A) 4 %; Neutrophils # (A) 5.1 k/uL (1.3-7.7); Neutrophils % (A) 77 %; Platelet Count 249 k/uL (150-450); RBC 4.21 m/uL (3.80-5.40); RDW 13.7 % (11.5-15.5); WBC 6.6 k/uL (3.8-10.6)
--- NOTE | 2021-10-21 12:09 | P.HPOB ---
History of Present Illness H&P Date: 10/21/21 Chief Complaint: at term: Prior section: Family planning Morena is a 36-year-old female 6 para 22 prior sections she is scheduled for repeat section with bilateral tubal occlusion Filshie clips for family planning. Risks/benefits/alternatives to this procedure were reviewed with the patient in detail and all questions were answered for her prior to proceeding to the operative room. Pertinent labs include A+ blood type, Rh antibody was negative, rubella was immune, hepatitis B surface antigen/RPR and HIV were all negative as was groupie strep. Her course was generally speaking unremarkable she did have an issue of possible placenta previa that was resolved by 28 weeks she also had a Scratch her finger or her toe rather and she received antibiotics for that. We did do nonstress tests for advanced maternal age starting at 32 weeks and she is done well since. Baby is questionable macrosomic but with planned should be able to limit the risk in this situation. A category 1 tracing is noted prior to proceeding to the operative room. Past Medical History Past Medical History: No Reported History History of Any Multi-Drug Resistant Organisms: None Reported Past Surgical History: No Surgical Hx Reported, Section Additional Past Surgical History / Comment(s): 2 c/s Past Anesthesia/Blood Transfusion Reactions: No Reported Reaction Past Psychological History: Depression Smoking Status: Never smoker Past Alcohol Use History: None Reported Additional Past Alcohol Use History / Comment(s): QUIT SMOKING 2015 Past Drug Use History: None Reported - Past Family History Mother Family Medical History: Hypertension, Skin Disorder Father Family Medical History: No Reported History Medications and Allergies Home Medications Medication Instructions Recorded Confirmed Type Pnv,Calcium 72/Iron/Folic Acid 1 each PO DAILY 01/29/17 10/21/21 History [ Plus Tablet] Allergies Allergy/AdvReac Type Severity Reaction Status Date / Time No Known Allergies Allergy Verified 10/21/21 10:20 Exam Osteopathic Statement: *. No significant issues noted on an osteopathic structural exam other than those noted in the History and Physical/Consult. Vital Signs Temp Pulse Resp BP Pulse Ox 10/21/21 11:00 97.6 F 97 18 124/70 98 Intake and Output 10/20/21 10/21/21 10/21/21 22:59 06:59 14:59 Other: Weight 112.491 kg - OBG Physical Exam Breast: both: normal (no masses) Abdomen: bowel sounds normal, no diffuse tenderness, no bruit present, no guarding noted, no hepatomegaly, no splenomegaly, no mass Vulva: both: normal Vagina: normal moisture, no discharge Cervix: no lesion, no discharge Uterus: normal size, normal contour Adnexa: both: normal Anus/Rectum: normal perianal skin, no rectal mass, no hemorrhoids, heme negative Results Result Diagrams: 10/21/21 10:40
[2021-10-21] MEDS ORDERED: MORPHINE SULFATE (PF) 0.3 MG/0.3 ML SYR ONE (12:27)
[2021-10-21] MEDS ORDERED: OXYTOCIN 30 UNITS/500 ML NS BAG IV ONE (12:27)
[2021-10-21] MEDS ORDERED: PHENYLEPHRINE-0.9% NACL SYG 1,000 MCG/10 ML SYRINGE ONE (12:27)
[2021-10-21] MEDS ORDERED: KETOROLAC 15 MG/ML 1 ML VIAL ONE (12:27)
[2021-10-21] MEDS ORDERED: NALBUPHINE 10 MG/ML (1 ML AMP) ONE (12:27)
[2021-10-21] MEDS ORDERED: diphenhydrAMINE 50 MG CAP PO PRN (13:05)
[2021-10-21] MEDS ORDERED: diphenhydrAMINE 25 MG CAP PO PRN (13:05)
[2021-10-21] MEDS ORDERED: ONDANSETRON 4 MG/2 ML VIAL IVP PRN (13:05)
[2021-10-21] MEDS ORDERED: ZOLPIDEM 5 MG TAB PO PRN (13:05)
[2021-10-21] MEDS ORDERED: diphenhydrAMINE 50 MG/ML 1 ML VIAL IVP PRN ×2 (13:05)
[2021-10-21] MEDS ORDERED: HYDROmorphone 2 MG TAB PO PRN (13:05)
[2021-10-21] MEDS ORDERED: METOCLOPRAMIDE 5 MG/ML 2 ML VIAL IVP PRN (13:05)
[2021-10-21] MEDS ORDERED: NALOXONE 0.4 MG/ML 1 ML VIAL IV PRN (13:05)
--- NOTE | 2021-10-21 13:10 | P.OP ---
Date of Procedure: 10/21/21 Preoperative Diagnosis: Intrauterine at term: Prior sections: Family planning Postoperative Diagnosis: Same Procedure(s) Performed: Repeat low transverse section with bilateral tubal occlusion with Filshie clips Anesthesia: spinal Surgeon: Marky Morgan Supervisor Backfilling #1: Andi Haley Estimated Blood Loss (ml): 233 IV fluids (ml): 700 Urine output (ml): 200 Pathology: none sent Condition: stable Disposition: floor Operative Findings: And scores of 8 and 9 at one and 5 minutes [place] weight was 8 lbs. 12 oz. Description of Procedure: She was taken to the operating suite where a spinal anesthetic was found be adequate. She was prepped and draped in the normal sterile fashion and placed in dorsal supine position with leftward tilt. Initially a Pfannenstiel skin incision was made and this incision was then carried through to underlying layer of the fascia was second knife. Fascia was then nicked in the midline and this opening was extended laterally with Ashraf scissors. Superior and inferior aspect of this incision were then grasped tented up and bluntly and sharply dissected off the rectus muscles. Rectus muscles were then divided midline and sharp dissection the peritoneum was performed. This opening was then extended superiorly and inferiorly with good visualization of both bowel bladder. Bladder blade was then placed and a bladder flap identified. It was entered with metastases scissors and carried across face uterus. Bladder was then bluntly dissected out of the operative field. Knife was then used to incise uterus this opening was then fully developed with hemostat and extended bluntly. Head was then H medically delivered nuchal cord 1 were stick reduced and the shoulders were and remainder the baby were delivered. Nursery personnel was present to assume care. Umbilical course clamped cut usual fashion. Placenta was then delivered intact Pitocin was added to the IV. Uterus was then exterior ized cleared of clots and debris and closed in 1 layer with 0 Vicryl suture. Once excellent hemostasis was obtained Filshie clips were applied to the fallopian tubes 2 cm from uterine cornu bilaterally. No bleeding is noted in the mesosalpinx. Blood and debris was then suctioned from the posterior cul-de-sac and the uterus was reinserted into the abdomen following clearing of gutters. Peritoneal layer was then delineated with hemostats and closed with 0 Vicryl suture. Fascial layer was closed with 0 Vicryl suture. One layer of 3-0 Vicryl was placed in deep subcuticular tissues to reapproximate skin and close space. Skin was then closed with 3-0 Vicryl subcuticular. Sponge, lap, needle counts were all correct 2. Patient was then taken to the recovery room in stable and satisfactory condition.
[2021-10-21] MEDS ORDERED: OXYTOCIN 30 UNITS/500 ML NS 30 UNIT in SALINE 1 500ML.BAG IV SCH (13:45)
[2021-10-21] MEDS: ACETAMINOPHEN TAB 500 MG TAB PO SCH (18:49)
[2021-10-22] MEDS: SENNOSIDES-DOCUSATE SODIUM 1 EACH TAB PO SCH ×3 (03:58→20:12)
[2021-10-22] MEDS: ACETAMINOPHEN TAB 500 MG TAB PO SCH ×5 (03:58→20:12)
[2021-10-22] MEDS: KETOROLAC 30 MG/ML 1 ML VIAL IVP SCH ×2 (04:01→16:21)
[2021-10-22] MEDS: LACTATED RINGERS 1,000 ML IV SCH ×4 (05:23→16:20)
[2021-10-22 06:44] LABS: Basophils % (A) 0 %; Eosinophils % (A) 0 %; Lymphocytes # (A) 1.6 k/uL (1.0-4.8); Lymphocytes % (A) 13 %; MCH 29.2 pg (25.0-35.0); MCHC 34.5 g/dL (31.0-37.0); MCV 84.5 fL (80.0-100.0); Mean Platelet Volume 8.2; Monocytes # (A) 0.5 k/uL (0-1.0); Monocytes % (A) 4 %; Neutrophils # (A) 9.4 k/uL (1.3-7.7); Neutrophils % (A) 81 %; Platelet Count 217 k/uL (150-450); RBC 3.78 m/uL (3.80-5.40); WBC 11.7 k/uL (3.8-10.6)
--- NOTE | 2021-10-22 07:12 | P.PN ---
Progress Note - Text Date: 10/22/2021 Time: 06:49 The patient is status post section Vital signs stable VAS:[ 0-10] Patient has no complaints of pain. The patient incurred some minimal itching yesterday, this itching is now subsiding. Pain meds to be managed by service.
--- NOTE | 2021-10-22 08:22 | P.PNOBGPC ---
Subjective - Subjective Principal diagnosis: Postop day 2 Interval history: Morena is doing very well this morning. She is ambulating, voiding and tolerating her diet. She does have some itching still but otherwise feels well. Patient reports: Reports appetite normal [place]: doing well Objective - Vital Signs Latest vital signs: Vital Signs Temp Pulse Resp BP Pulse Ox 10/22/21 03:56 98.6 F 76 15 110/68 98 10/22/21 00:00 98.3 F 74 18 128/76 97 10/21/21 22:00 17 10/21/21 20:00 98.0 F 72 18 114/70 10/21/21 18:50 18 97 10/21/21 15:15 96.0 F L 69 18 108/59 96 10/21/21 15:00 18 10/21/21 14:45 97.7 F 68 18 103/57 10/21/21 14:15 60 100/53 10/21/21 14:00 66 98/55 10/21/21 13:45 72 18 106/56 98 10/21/21 13:30 66 102/53 10/21/21 13:15 96.9 F L 80 18 101/52 96 10/21/21 11:00 97.6 F 97 18 124/70 98 Intake and Output 10/21/21 10/22/21 10/22/21 22:59 06:59 14:59 Intake Total 960 Output Total 300 400 Balance 660 -400 Intake: Oral 960 Output: Urine 300 400 Uretheral (Benavides) 300 Other: Voiding Method Toilet # Voids 1 - Exam Lungs: bilateral: normal Chest: Normal S1, Normal S2 Extremities: Present: normal Abdomen: Present: normal appearance, soft. Absent: distention, tenderness Incision: Present: normal, dry, intact Uterus: Present: normal, firm - Labs Labs: Abnormal Lab Results - Last 24 Hours (Table) 10/22/21 Range/Units 06:21 WBC 11.7 H (3.8-10.6) k/uL RBC 3.78 L (3.80-5.40) m/uL Hgb 11.0 L (11.4-16.0) gm/dL Hct 32.0 L (34.0-46.0) % Neutrophils # 9.4 H (1.3-7.7) k/uL
[2021-10-22] MEDS: IBUPROFEN 600 MG TAB PO SCH ×3 (10:12→18:45)
[2021-10-23] MEDS: IBUPROFEN 600 MG TAB PO SCH ×2 (04:36→13:00)
[2021-10-23] MEDS: ACETAMINOPHEN TAB 500 MG TAB PO SCH (08:36)
[2021-10-23] MEDS: SENNOSIDES-DOCUSATE SODIUM 1 EACH TAB PO SCH (08:36)
--- NOTE | 2021-10-23 08:56 | P.DS ---
Providers Date of admission: 10/21/21 10:06 Expected date of discharge: 10/23/21 Attending physician: Marky Morgan Primary care physician: Stated None Hospital Course: Morena is doing very well postop day 2. She is ambulating, voiding and she is tolerating a diet. She is passing flatus. Vital signs are stable and afebrile. Heart regular, lungs clear, extremities without pain. Abdomen soft is firm. Lochia is reported be light. Incisions clean dry and intact. Assessment postop day 2. Plan discharged home follow up with me in 1 week. Discharge instructions thoroughly reviewed and incision care is also reviewed. All questions are answered for her prior to discharge. She will follow up with me in 1 week. Prescription for Motrin was forward to the pharmacy. Patient Condition at Discharge: Good Plan - Discharge Summary Discharge Rx Participant: No New Discharge Prescriptions: New Ibuprofen [Motrin] 600 mg PO Q6HR PRN #30 tab PRN Reason: Pain No Action Pnv,Calcium 72/Iron/Folic Acid [ Plus Tablet] 1 each PO DAILY Discharge Medication List Pnv,Calcium 72/Iron/Folic Acid [ Plus Tablet] 1 each PO DAILY 01/29/17 [History] Ibuprofen [Motrin] 600 mg PO Q6HR PRN #30 tab 10/23/21 [Rx] Follow up Appointment(s)/Referral(s): Marky Morgan DO [Doctor of Osteopathic Medicine] - 10/30/21 9:00 am (6week pp 12/05/21@11am) Activity/Diet/Wound Care/Special Instructions: No heavy Lifting, limit stairs and driving, and pelvic rest. If any high temperatures, heavy bleeding, or severe pain call my office Discharge Disposition: HOME SELF-CARE
[2021-10-23 09:23] VITALS: BP 125/84; PULSE 89; RESP 18; TEMP 98.2
== END 2021-10-23 14:45 | disposition home or self-care (01) | DRG 785 ==
LOC: 4FBP 10:06
PROVIDERS: ADMIT Obstetrics & Gynecology; ATTEND Obstetrics & Gynecology
PROC: 0UL70CZ Occlusion of Bilateral Fallopian Tubes with Extraluminal Device, Open Approach (ICD-10-PCS; 2021-10-21)
PROC: 10D00Z1 Extraction of Products of Conception, Low, Open Approach (ICD-10-PCS; principal; 2021-10-21 12:00)
DX: O34.211 Maternal care for low transverse scar from previous cesarean delivery (principal); Z37.0 Single live birth; Z82.49 Family history of ischemic heart disease and other diseases of the circulatory system; Z30.2 Encounter for sterilization; O69.81X0 Labor and delivery complicated by cord around neck, without compression, not applicable or unspecified; Z3A.39 39 weeks gestation of pregnancy
CPT/HCPCS: 85025; 86850; 86900; 86901